=== PATIENT | male | born 1995 | race Caucasian/White ===

== ENCOUNTER → 2019-04-06 | Outpatient (CLI) | payer BC, OTHER ==
[2019-04-06 16:32] LABS: Basophils # (A) 0.1 k/uL (0-0.2); Basophils % (A) 1 %; Eosinophils # (A) 0.5 k/uL (0-0.7); Eosinophils % (A) 4 %; HCT 43.1 % (39.0-53.0); HGB 13.8 gm/dL (13.0-17.5); Hypochromasia Slight; Lymphocytes # (A) 2.2 k/uL (1.0-4.8); Lymphocytes % (A) 21 %; MCH 26.9 pg (25.0-35.0); Mean Platelet Volume 7.2; Monocytes # (A) 0.6 k/uL (0-1.0); Monocytes % (A) 6 %; Neutrophils # (A) 7.1 k/uL (1.3-7.7); Neutrophils % (A) 66 %; Platelet Count 464 k/uL (150-450); RBC 5.12 m/uL (4.30-5.90); RDW 13.6 % (11.5-15.5); WBC 10.8 k/uL (3.8-10.6)
[2019-04-06 16:57] LABS: Appearance,Urine Turbid (Clear); Bacteria,Urine Few /hpf; Bilirubin,Urine Negative (Negative); Blood,Urine Small (Negative); Color,Urine Yellow; Glucose,Urine (UA) Negative (Negative); Ketones,Urine Negative (Negative); Leukocyte Esterase,Urine Large (Negative); Mucus,Urine Few /hpf; Nitrite,Urine Negative (Negative); PH, Urine 7.5 (5.0-8.0); Protein,Urine 2+ (Negative); Squamous Epithelial Cell,Urine 3 /hpf (0-4); Urobilinogen,Urine <2.0 mg/dL (<2.0); WBC,Urine >182 /hpf (0-5)
[2019-04-06 16:58] LABS: Specific Gravity,Urine 1.005 (1.001-1.035)
[2019-04-07 01:36] LABS: African American GFR (CKD) 164.3 (60.0-200.0); Anion Gap 14.4 mmol/L (4.00-12.00); BUN/Creat Ratio 21.67 Ratio (12.00-20.00); Calcium 9.5 mg/dL (8.7-10.3); Carbon Dioxide 18.6 mmol/L (21.6-31.8); Non-African American GFR(CKD) 141.7 (60.0-200.0); Potassium 4.9 mmol/L (3.5-5.5)
== END | disposition home or self-care (01) ==
LOC: LABWHC1 15:22
PROVIDERS: ATTEND Urology
DX: N21.0 Calculus in bladder (principal)
CPT/HCPCS: 36415; 80048; 81001; 85025; 87086

== ENCOUNTER 2021-02-26 16:40 | Emergency (ER) | payer BC, OTHER ==
[2021-02-26 16:51] VITALS: RESP 18; TEMP 97.2
[2021-02-26 19:29] LABS: Appearance,Urine Cloudy (Clear); Bacteria,Urine Rare /hpf; Bilirubin,Urine Negative (Negative); Blood,Urine Small (Negative); Color,Urine Yellow; Glucose,Urine (UA) Negative (Negative); Ketones,Urine Negative (Negative); Leukocyte Esterase,Urine Large (Negative); Mucus,Urine Rare /hpf; Nitrite,Urine Positive (Negative); PH, Urine 6.5 (5.0-8.0); Protein,Urine 1+ (Negative); RBC,Urine 10 /hpf (0-5); Specific Gravity,Urine 1.014 (1.001-1.035); Urobilinogen,Urine <2.0 mg/dL (<2.0); WBC,Urine 134 /hpf (0-5)
--- NOTE | 2021-02-26 20:11 | ED ---
General Adult HPI - General Chief complaint: Abdominal Pain Stated complaint: unable to urinate since yesterday Time Seen by Provider: 02/26/21 18:07 Source: patient, family, RN notes reviewed Mode of arrival: wheelchair Limitations: no limitations - History of Present Illness Initial comments: Patient is a 25-year-old male that presents to the emergency department complaining of a blocked Andres catheter. He notes he said the Andres for approximately 2 months has had a blocked several times in a data change. Patient notes that he comes in today for not being able to urinate for at least one. He notes that he does have some pre-significant lower abdominal distention and tenderness. Patient denied any other issues or complaints. He was otherwi se well-appearing. He did denied any chest pain first breath headache nausea vomiting diarrhea constipation fever fatigue chills. - Related Data Home Medications Medication Instructions Recorded Confirmed Glycopyrrolate [Robinul] 1 mg PO BID 12/22/13 12/22/13 Sulfamethoxazole/Trimethoprim 1 each PO Q12H 12/22/13 12/22/13 [Bactrim DS 800-160 mg] Tolterodine ER [Detrol LA] 2 mg PO DAILY 12/22/13 12/22/13 Previous Rx's Medication Instructions Recorded Ciprofloxacin HCl [Cipro] 500 mg PO Q12HR #20 tablet 12/22/13 Ciprofloxacin HCl [Cipro] 500 mg PO Q12HR #10 tablet 02/26/21 Allergies Allergy/AdvReac Type Severity Reaction Status Date / Time codeine AdvReac Rash/Hives Verified 02/26/21 16:51 Review of Systems ROS Statement: Those systems with pertinent positive or pertinent negative responses have been documented in the HPI. ROS Other: All systems not noted in ROS Statement are negative. Past Medical History Additional Past Medical History / Comment(s): spina bifida History of Any Multi-Drug Resistant Organisms: None Reported Past Surgical History: Back Surgery Additional Past Surgical History / Comment(s): [employer] shunt, Past Psychological History: No Psychological Hx Reported Smoking Status: Never smoker Past Alcohol Use History: None Reported Past Drug Use History: None Reported General Exam Limitations: no limitations General appearance: alert, in no apparent distress, obese Head exam: Present: atraumatic, normocephalic, normal inspection Eye exam: Present: normal appearance, PERRL, EOMI. Absent: scleral icterus, conjunctival injection, periorbital swelling ENT exam: Present: normal exam, mucous membranes moist Neck exam: Present: normal inspection Respiratory exam: Present: normal lung sounds bilaterally. Absent: respiratory distress, wheezes, rales, rhonchi, stridor Cardiovascular Exam: Present: regular rate, normal rhythm, normal heart sounds. Absent: systolic murmur, diastolic murmur, rubs, gallop, clicks GI/Abdominal exam: Present: soft, tenderness (Suprapubic region), normal bowel sounds. Absent: distended, guarding, rebound, rigid Neurological exam: Present: alert, oriented X3 Psychiatric exam: Present: normal affect, normal mood Skin exam: Present: warm, dry, intact, normal color. Absent: rash Course Vital Signs 02/26/21 16:47 Temperature 97.2 F L Pulse Rate 101 H Respiratory 18 Rate Blood Pressure 146/106 O2 Sat by Pulse 97 Oximetry Medical Decision Making - Medical Decision Making 25-year-old male needing a catheter replacement. Follicular was replaced and is draining well. Urinalysis sent in ordered. Urinalysis shows many white blood cells, antibiotics sent to pharmacy. Case discussed with Dr. Horvath, patient can discharge home. - Lab Data Lab Results 02/26/21 Range/Units 18:58 Urine Color Yellow Urine Appearance Cloudy (Clear) Urine pH 6.5 (5.0-8.0) Ur Specific [place] 1.014 (1.001-1.035) Urine Protein 1+ H (Negative) Urine Glucose (UA) Negative (Negative) Urine Ketones Negative (Negative) Urine Blood Small H (Negative) Urine Nitrite Positive (Negative) Urine Bilirubin Negative (Negative) Urine Urobilinogen <2.0 (<2.0) mg/dL Ur Leukocyte Esterase Large H (Negative) Urine RBC 10 H (0-5) /hpf Urine WBC 134 H (0-5) /hpf Urine WBC Clumps Few H (None) /hpf Urine Bacteria Rare H (None) /hpf Urine Mucus Rare H (None) /hpf Disposition Clinical Impression: Malfunction of Andres catheter, Urinary tract infection Disposition: HOME SELF-CARE Condition: Stable Instructions (If sedation given, give patient instructions): Urinary Tract Infection in Men (ED) Additional Instructions: Please return to the Emergency Department if symptoms worsen or any other concerns. Follow-up with primary care 1-2 days. Antibiotics as prescribed. Prescriptions: Ciprofloxacin HCl [Cipro] 500 mg PO Q12HR #10 tablet Is patient prescribed a controlled substance at d/c from ED?: No Referrals: Isaiah Aguila DO [Primary Care Provider] - 1-2 days Time of Disposition: 20:11
[2021-02-26 20:32] VITALS: BP 161/83; PULSE 109
== END 2021-02-26 20:32 | disposition home or self-care (01) ==
LOC: EC 16:40
DX: T83.091A Other mechanical complication of indwelling urethral catheter, initial encounter (principal); N39.0 Urinary tract infection, site not specified
CPT/HCPCS: 81001; 87086; 99284

== ENCOUNTER → 2022-03-22 | Outpatient (CLI) | payer SELFPAY ==
[2022-03-23 00:06] LABS: Appearance,Urine Cloudy (Clear); Bilirubin,Urine Small (Negative); Blood,Urine Negative (Negative); Color,Urine Dark Yellow (Yellow); Ketones,Urine Negative (Negative); Nitrite,Urine Positive (Negative); Specific Gravity,Urine 1.017 (1.001-1.030)
[2022-03-23 00:32] LABS: Amorphous Sediment,Urine Present /LPF (None Seen); Bacteria,Urine None Seen /HPF (None Seen); Triple Phosphate Crystal,Urine Present /LPF (None Seen)
== END | disposition home or self-care (01) ==
LOC: LABWHC1 14:36
PROVIDERS: ATTEND Family Medicine
DX: N39.0 Urinary tract infection, site not specified (principal)
CPT/HCPCS: 81001; 87086

== ENCOUNTER → 2024-01-10 | Outpatient (CLI) | payer OTHER ==
--- NOTE | 2024-01-10 16:51 | US ---
EXAMINATION TYPE: US kidneys/renal and bladder DATE OF EXAM: 01/10/2024 COMPARISON: US 2022 CLINICAL INDICATION: Male, 28 years old with history of N13.30 Hydronephrosis; TECHNIQUE: Grayscale and color Doppler imaging of the bilateral kidneys and urinary bladder: FINDINGS: EXAM MEASUREMENTS: Right Kidney: 10.3 x 5.4 x 4.7 cm Left Kidney: 10.2 x 4.5 x 4.7 cm Right Kidney: mild hydronephrosis Left Kidney: mild hydronephrosis, 0.8cm stone inferior pole Bladder: irregular wall Bilateral Jets seen: no Mild bilateral hydronephrosis. No right renal calculi identified. Left inferior pole 0.8 cm shadowing calculus. Cortical medullary differentiation is maintained bilaterally. No The urinary bladder is an echoic with trabeculated irregular appearance of the wall redemonstrated. Mildly distended urinary b ladder. No ureteral jets identified. IMPRESSION: 1. Mild bilateral hydronephrosis. 2. Nonobstructive left renal calculus. 3. 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 [facility], , 01/10/2024 4:49 PM
== END | disposition home or self-care (01) ==
LOC: RADUSWWP 16:06
PROVIDERS: ATTEND Urology
DX: N13.2 Hydronephrosis with renal and ureteral calculous obstruction (principal)
CPT/HCPCS: 76770